=== PATIENT | male | born 1970 | race Caucasian/White ===

== ENCOUNTER 2025-05-16 12:18 | Outpatient (CLI) | payer MEDICAID ==
--- NOTE | 2025-05-16 14:01 | RADIOLOGY REPORT ---
PROCEDURE: MR MRI LUMBAR SPINE INDICATION: LESION OF SCIATIC NERVE, LOW BACK PAIN, UNSPECIFIED Exam Date: 05/16/2025 12:19 PM COMPARISON: None TECHNIQUE: MRI lumbar spine without intravenous contrast. FINDINGS: Multilevel disc degeneration. Alignment: Grade 1 retrolisthesis of L3 on L4. Vertebrae: Vertebral body height is well maintained without evidence of a recent compression fracture. Conus: Conus medullaris terminates at the T12 level. Following levels detailed below: T12-L1: Disc desiccation. No spinal canal or neural foraminal stenosis. The facet joints are normal. L1-2: The disc configuration is normal. No spinal canal stenosis. Severe right foraminal stenosis with potential right exiting L1 nerve root compression. Facet arthrosis. L2-3: Disc desiccation. No spinal canal stenosis. Severe left foraminal stenosis with potential left exiting L2 nerve root compression. Facet arthrosis. L3-4: Grade 1 retrolisthesis of L3 on L4. Disc desiccation and 5.7 mm disc bulge. Mild spinal canal stenosis. Severe right foraminal stenosis with potential right exiting L3 nerve root compression. The facet joints are normal. L4-5: Disc desiccation. Moderate disc height loss. Central disc extrusion measured 8.1 mm in radial dimension with 5.4 mm of cranial extension. Moderate spinal canal stenosis. No neural foraminal stenosis. The facet joints are normal. L5-S1: The disc configuration is normal. No spinal canal stenosis. Severe bilateral foraminal stenosis with potential bilateral exiting L5 nerve root compression. Facet arthrosis. IMPRESSION: Multilevel disc degeneration. Multilevel spinal canal stenosis, most pronounced and moderate at L4-L5. Multilevel foraminal stenosis, most pronounced and severe at L5-S1 with potential bilateral exiting L5 nerve root compression.
== END 2025-05-16 23:59 | disposition home or self-care (01) ==
LOC: MRI02 12:18
PROVIDERS: ATTEND Family Medicine Sports Medicine
DX: M51.16 Intervertebral disc disorders with radiculopathy, lumbar region (principal); M25.561 Pain in right knee; M17.11 Unilateral primary osteoarthritis, right knee; M77.9 Enthesopathy, unspecified; E66.9 Obesity, unspecified; M54.50 Low back pain, unspecified; M48.07 Spinal stenosis, lumbosacral region; M47.26 Other spondylosis with radiculopathy, lumbar region
CPT/HCPCS: 72148